=== PATIENT | female | born 1995 | race Caucasian/White ===

== ENCOUNTER 2021-10-27 21:45 | Emergency (ER) | payer MEDICAID ==
[~2021-10-27] VITALS: Ht 162.6 cm; Wt 81.8 kg
[2021-10-27 22:12] VITALS: BP 120/68
[2021-10-27 22:15] VITALS: BP 116/79
[2021-10-27 22:30] VITALS: BP 107/69
[2021-10-27 22:45] VITALS: BP 115/65
[2021-10-27] MEDS ORDERED: EC-NAPROXEN500 MG PO (23:23)
[2021-10-27] MEDS ORDERED: OMNICEF300 M1 PO (23:23)
[2021-10-27] MEDS ORDERED: LORTAB 5/3255 MG PO (23:23)
[2021-10-28 00:22] VITALS: BP 112/68
== END 2021-10-28 00:22 | disposition home or self-care (01) ==
LOC: ED 21:45
DX: K02.9 Dental caries, unspecified (principal); S02.5XXA Fracture of tooth (traumatic), initial encounter for closed fracture; X58.XXXA Exposure to other specified factors, initial encounter

== ENCOUNTER 2022-08-19 14:58 | Emergency (ER) | payer OTHER ==
[~2022-08-19] VITALS: Ht 162.6 cm; Wt 79.3 kg
[~2022-08-19 14:58] MED LIST: EC-NAPROXEN500 MG PO; LORTAB 5/3255 MG PO; OMNICEF300 M1 PO
[2022-08-19 15:49] VITALS: BP 113/65
[2022-08-19 16:00] VITALS: BP 104/70
[2022-08-19 16:15] VITALS: BP 100/68
[2022-08-19 16:30] VITALS: BP 109/79
[2022-08-19 17:02] VITALS: BP 112/67
[2022-08-19] MEDS ORDERED: METHOCARBAMOL500 MG PO (19:06)
[2022-08-19] MEDS ORDERED: NAPROXEN500 MG PO (19:06)
[2022-08-19] MEDS ORDERED: PREDNISONE10 MG PO (19:06)
[2022-08-19 19:17] VITALS: BP 97/66
== END 2022-08-19 19:17 | disposition home or self-care (01) ==
LOC: ED 14:58
DX: S39.012A Strain of muscle, fascia and tendon of lower back, initial encounter (principal); F17.200 Nicotine dependence, unspecified, uncomplicated; X58.XXXA Exposure to other specified factors, initial encounter